=== PATIENT | female | born 1990 | race Two or more races ===

== ENCOUNTER 2024-09-15 07:59 | Emergency (ER) | payer MEDICAID ==
[~2024-09-15] VITALS: Ht 160 cm; Wt 68.0 kg
--- NOTE | 2024-09-15 08:16 | ED.PDOC ---
HPI Comments 34-year-old female with no reported PMHx presents with a chief complaint of chest pain x 2 days. Patient states that her chest pain is localized to her left chest wall, nonradiating, describes as sharp, and rates her pain a 8/10. Patient mentions that the pain is made worse when taking deep breaths. Patient denies any trauma or injuries to her chest wall. Patient mentions that she is taking supplements after having uterine fibroids removed. Patient reports taking Tylenol for the pain, but denies any relief of symptoms. 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 Family History Family History: Reviewed,noncontributory to illness Social History Smoker: Non-Smoker Alcohol: Denies ETOH Use Drugs: Denies Drug Use Constitutional: denies: chills, diaphoresis, fatigue, fever, malaise, sweats, weakness, others EENTM: denies: blurred vision, double vision, ear bleeding, ear discharge, ear drainage, ear pain, ear ringing, eye pain, eye redness, hearing loss, mouth pain, mouth swelling, nasal discharge, nose bleeding, nose congestion, nose pain, photophobia, tearing, throat pain, throat swelling, voice changes, others Respiratory: denies: cough, hemoptysis, orthopnea, SOB at rest, shortness of breath, SOB with excertion, stridor, wheezing, others Cardiovascular: reports: chest pain; denies: dizzy spells, diaphoresis, Dyspnea on exertion, edema, irregular heart beat, left arm pain, lightheadedness, palpitations, PND, syncope, others Gastrointestinal: denies: abdomen distended, abdominal pain, blood streaked bowels, constipated, diarrhea, dysphagia, difficulty swallowing, hematemesis, melena, nausea, poor appetite, poor fluid intake, rectal bleeding, rectal pain, vomiting, others Genitourinary: denies: abnormal vagina bleeding, burning, dyspareunia, dysuria, flank pain, frequency, hematuria, incontinence, pain, , vagina discharge, urgency, others Neurological: denies: dizziness, fainting, headache, left sided numbness, left sided weakness, numbness, paresthesia, pre-existing deficit, right sided numbness, right sided weakness, seizure, speech problems, tingling, tremors, weakness, others Musculoskeletal: denies: back pain, gout, joint pain, joint swelling, muscle pain, muscle stiffness, neck pain, others Integumetry: denies: bruises, change in color, change in hair/nails, dryness, laceration, lesions, lumps, rash, wounds, others Allergic/Immunocompromised: denies: Difficulty Healing, Frequent Infections, Hives, Itching, others Hematologic/Lymphatic: denies: anemia, blood clots, easy bleeding, easy bruising, swollen glands, others Endocrine: denies: excessive hunger, excessive sweating, excessive thirst, excessive urination, flushing, intolerance to cold, intolerance to heat, unexplained weight gain, unexplained weight loss, others Psychiatric: denies: anxiety, bipolar disorder, depression, hopeless, panic disorder, schizophrenia, sleepless, suicidal, others All Other Systems: Reviewed and Negative Physical Exam General Appearance: Mild Distress, Normal HEENT: Normal ENT Inspection, Pharynx Normal, TMs Normal Neck: Full Range of Motion, Non-Tender, Normal, Normal Inspection Respiratory: Chest Non-Tender, Lungs Clear, No Accessory Muscle Use, No Respiratory Distress, Normal Breath Sounds Cardiovascular: No Edema, No JVD, No Murmur, No Gallop, Normal Peripheral Pulses, Regular Rate/Rhythm Breast Exam: Deferred Gastrointestinal: No Organomegaly, Non Tender, No Pulsatile Mass, Normal Bowel Sounds, Soft Genitalia: Deferred Pelvic: Deferred Rectal: Deferred Extremities: No calf tenderness, Normal capillary refill, Normal inspection, Normal range of motion, Non-tender, No pedal edema Musculoskeletal : Apperance: Normal Neurologic: Alert, canteen manager II-XII nml as Tested, No Motor Deficits, Normal Affect, Normal Mood, No Sensory Deficits Cerebellar Function: Normal Reflexes: Normal Skin: Dry, Normal Color, Warm Lymphatic: No Adenopathy EKG EKG : Pulse Rate (adult): 85 [place]: Normal Cardiac Rhythm: NSR Block: None Hypertrophy: None ST: Normal Was a procedure done? Was a procedure done?: No CP Differential Dx Differential Diagnosis: Pulmonary Embolus Differential Diagnosis: Costochondritis, Pericarditis, Pneumothorax, Pulmonary Embolus Comment acute coronary syndrome X-Ray, Labs, Meds, VS Vital Signs Date Time Temp Pulse Resp B/P (MAP) Pulse Ox O2 Delivery O2 Flow Rate FiO2 09/15/24 08:22 85 09/15/24 08:21 84 16 98 Room Air* 0 21 09/15/24 08:21 98.2 84 16 108/68 (81) 98 98.2 09/15/24 08:16 85 09/15/24 08:06 98.2 86 17 115/79 (91) 97 Lab Test 09/15/24 08:14 Range/Units Troponin I High Sensitivity < 3 L </=34 ng/L Current Medications Medications (Trade) Dose Ordered Sig/Tracey Route Start Time Stop Time Status Last Admin Ibuprofen (Motrin Tablet) 800 mg ONCE ONCE PO 09/15/24 08:15 09/15/24 08:16 DC 09/15/24 08:21 PATIENT: LORIE BAUTISTAACCT: [id number]: [id number] : 1990 LOC: ER ROOM / BED: / AGE / SEX: 34 / F ADM STATUS: REG ER SERVICE 2 ORDERING PHYSICIAN: CORAZON ESTRELLA MD PROCEDURE(s): CXR2 - CHEST TWO VIEWS ROUTINE REASON: cp ORDER NUMBER(s): [id number], ACCESSION NUMBER(s): [id number] EXAM: XY CHEST TWO VIEWS ROUTINE HISTORY: cp COMPARISON: None TECHNIQUE: Frontal and lateral views of the chest were performed. FINDINGS: No pneumothorax, pulmonary edema, pleural effusions, or consolidative infiltrates. There is mild central peribronchial thickening. The heart is not enlarged. No fractures are identified about the bony thorax. IMPRESSION: Mild reactive airways disease. The lungs are otherwise clear. ATED BY: CARLOS GREGORY MD DICTATED DATE/TIME: 09/15/24846 SIGNED BY: CARLOS GREGORY MD SIGNED DATE/TIME: 09/15/24846 34-year-old female presents here with chest discomfort. She has reports pain with deep breathing. On my examination she is well-appearing. Considered po ssible pulmonary emboli however she has no leg swelling denies any shortness of breath, saturating 100% on room air and has no risk factors is not on any control. Low suspicion at this time. Suspect likely [place]. Chest x-ray has been done with no evidence of pneumothorax or pneumonia. It does demonstrate mild central peribronchial thickening. Consistent with mild reactive airway disease. Patient does not demonstrate any recent illness and does not report any cough or shortness of breath. However this could be a contributing factor. I have given her ibuprofen 800 mg p.o. in the ER and clinically she is feeling better. Advised patient to take ibuprofen 600 mg p.o. q.6 hours around the clock for the 1st 24 hours and then p.r.n. as needed. Troponin has been checked she is negative. EKG with no evidence of pericarditis no evidence of WPW and is within normal limits. No evidence of other cardiac etiology at this time based on EKG. This time I have discharging the patient home. Advised the patient to follow up with PCP in 2-3 days and return to the ER if symptoms worsen or persist. Family understands. Time of 1ST Reevaluation: 08:38 Reevaluation 1ST: Unchanged Patient Education/Counseling: Diagnosis, Treatment, Prognosis Family Education/Counseling: Diagnosis, Treatment, Prognosis Departure 1 Departure Time of Disposition: 08:50 Impression: Primary Impression: Pleurisy Additional Impression: Reactive airway disease Qualified Codes: J45.909 - Unspecified asthma, uncomplicated Disposition: 01 HOME / SELF CARE / HOMELESS Condition: Fair Written Prescriptions Follow up with the primary care physician in 2-3 days. Return to the ER if symptoms worsen or persist. Take ibuprofen 600 mg p.o. (3 tablets of 200 mg each) every 6 hours for the 1st 24 hours whether or not you have discomfort to help with inflammation, after that you can take as needed. Ibuprofen can be bought [id number] at any drug store. Discharged With: Self Critical Care Note Critical Care Time?: No Stability Stability form required: No Heart Score Heart Score: Heart Score Response (Comments) Value History Slightly Suspicious 0 EKG Normal 0 Age <45 0 Risk Factors No known risk factors 0 Troponin Normal limit 0 Total 0 I personally scribed for CORAZON ESTRELLA MD ([email or web address]) on 09/15/24 at 08:16. Electronically submitted by Subhash Barlow ([email or web address]). I personally scribed for CORAZON ESTRELLA MD ([email or web address]) on 09/15/24 at 08:26. Electronically submitted by Subhash Barlow ([email or web address]). I personally scribed for CORAZON ESTRELLA MD ([email or web address]) on 09/15/24 at 09:34. Electronically submitted by Subhash Barlow ([email or web address]). I personally scribed for CORAZON ESTRELLA MD ([email or web address]) on 09/15/24 at 09:45. Electronically submitted by Subhash Barlow ([email or web address]). CORAZON ESTRELLA MD Sep 15, 2024 08:16
[2024-09-15 08:21] VITALS: BP 108/68; PULSE 84; RESP 16; TEMP 98.2; O2SAT 98
[2024-09-15] MEDS: IBUPROFEN 800 MG TAB PO ONE (08:21)
[2024-09-15 08:22] VITALS: PULSE 85
--- NOTE | 2024-09-15 08:49 | DVH ---
EXAM: XY CHEST TWO VIEWS ROUTINE HISTORY: cp COMPARISON: None TECHNIQUE: Frontal and lateral views of the chest were performed. FINDINGS: No pneumothorax, pulmonary edema, pleural effusions, or consolidative infiltrates. There is mild cent ral peribronchial thickening. The heart is not enlarged. No fractures are identified about the bony thorax. IMPRESSION: Mild reactive airways disease. The lungs are otherwise clear.
--- NOTE | 2024-09-17 01:04 | ECG ---
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
== END 2024-09-15 10:28 | disposition home or self-care (01) ==
LOC: ER 07:59
DX: R09.1 Pleurisy (principal); J45.909 Unspecified asthma, uncomplicated
CPT/HCPCS: 36415; 71046; 84484; 93005

== ENCOUNTER 2025-04-22 19:28 | Observation (INO) | payer SELFPAY ==
--- NOTE | 2025-04-22 21:56 | DVHDS2 ---
Physician Discharge Progress N Final Diagnosis: well being established Operations or Procedures: Operations or Procedures S: 34yo IUP@25.0wks presents to OB triage with c/o DFM. Pt drank only 2 bottles of water today and last ate at breakfast. Denies UCs/VB/LOF. PNC with Dr. Chen at [facility], uncomplicated. PMH: denies PSH: myomectomy 1 year ago FMH: denies O: VSS PO hydrated and pt reports + movement FHR 145 A: 34yo IUP@25.0wks well being established P: D/C home Discussed that [facility]KC start at 28 weeks. SAB/PTL precautions reviewed. f/u with Dr. Chen as scheduled in [address] Chen consulted, agrees with POC. Condition on Discharge: Stable Disposition: Home Discharge Instructions: Diet: Regular Activity: No Restrictions, As Tolerated Medications: see med list Follow Up Care: Specialist: f/u with Dr. Chen as scheduled in 3 wks Discharge Statement: "Patient was advised to return to the ER or call 911 if any headaches, dizziness, shortness of breath, chest pain, abdominal pain, bleeding, fevers, or worsening of medical condition. Patient was counseled about treatment plan, medications, possible side effects, patientverbalized understanding. All questions were answered to the best of my ability. This discharge took greater then 30 minutes in planning, reviewing documentation, counseling the patient, and discussing with other team members." Visit Coding OBGYN Date of Service: Apr 22, 2025 Billing Provider: SABRINA MENON CNM PRICE ANALYST Common Visit Codes: [id number] OBS CARE (MOD) SABRINA MENON CNM Apr 22, 2025 21:56
== END 2025-04-22 21:07 | disposition home or self-care (01) ==
LOC: LDRP 19:28
PROVIDERS: ADMIT Obstetrics & Gynecology; ATTEND Obstetrics & Gynecology
DX: O36.8120 Decreased fetal movements, second trimester, not applicable or unspecified (principal); Z3A.25 25 weeks gestation of pregnancy; Z98.890 Other specified postprocedural states
CPT/HCPCS: 59025